=== PATIENT | female | born 1960 | race Caucasian/White ===

== ENCOUNTER 2016-10-18 05:10 | Day surgery (SDC) | payer OTHER ==
[2016-10-15 10:52] VITALS: BP 119/72
[2016-10-15 11:36] LABS: PATH.CAST-FLAG NOT PRESENT; SPERM-FLAG NOT PRESENT; SRC-FLAG NOT PRESENT; XTAL-FLAG NOT PRESENT; YLC-FLAG NOT PRESENT
[~2016-10-18] VITALS: Ht 139.7 cm; Wt 47.0 kg
[~2016-10-18 05:10] MED LIST: ACET-1600 PO; CRAN250T PO
[2016-10-18] MEDS ORDERED: LACTATED RINGERS 1,000 ML IV SCH (06:16)
[2016-10-18 06:19] VITALS: BP 119/72
[2016-10-18 07:01] LABS: HCG UR OBC PASS
[2016-10-18] MEDS ORDERED: FENTANYL PF 250 MCG/5ML ONE (07:14)
[2016-10-18] MEDS ORDERED: MIDAZOLAM 1 MG/ML, 2ML ONE (07:15)
[2016-10-18] MEDS ORDERED: PHENYLEPHRINE 10 MG/ML ONE (07:31)
[2016-10-18] MEDS ORDERED: CEFAZOLIN 1,000 MG ONE (07:31)
[2016-10-18] MEDS ORDERED: KETOROLAC 30 MG/1 ML ONE (07:31)
[2016-10-18] MEDS ORDERED: NEOSTIGMINE 1 MG/ML, 10ML ONE (07:31)
[2016-10-18] MEDS ORDERED: GLYCOPYRROLATE 0.2MG/1ML ONE (07:31)
[2016-10-18] MEDS ORDERED: PROPOFOL 10 MG/ML, 20ML ONE (07:31)
[2016-10-18] MEDS ORDERED: DEXAMETHASONE 4 MG/ML, 1ML ONE (07:31)
[2016-10-18] MEDS ORDERED: ROCURONIUM 10 MG/ML ONE (07:31)
[2016-10-18] MEDS ORDERED: ONDANSETRON 2MG/ML, 2ML ONE (07:31)
[2016-10-18] MEDS: BUPIVACAINE/PF-EPI 0.25% 1:200K ONE ×2 (07:52→08:28)
[2016-10-18] MEDS ORDERED: ACETAMINOPHEN 325 MG TABLET PO PRN (08:00)
[2016-10-18] MEDS ORDERED: PROMETHAZINE 25 MG/ML, 1ML IV PRN (08:00)
[2016-10-18] MEDS ORDERED: PROMETHAZINE 25 MG/ML, 1ML ONE (09:23)
[2016-10-18] MEDS ORDERED: FENTANYL PF 100 MCG/2ML ONE ×2 (09:23→09:43)
[2016-10-18] MEDS: FENTANYL PF 100 MCG/2ML IV PRN ×3 (09:30→09:45)
[2016-10-18] MEDS ORDERED: ACETAMINOPHEN 650 MG/20.3 ML UDC ONE (09:36)
[2016-10-18] MEDS ORDERED: OXYcodone 5 MG/5 ML ORAL.SOL UDC ONE (09:36)
[2016-10-18] MEDS: OXYcodone 5 MG/5 ML ORAL.SOL UDC PO PRN ×2 (09:40→09:44)
[2016-10-18] MEDS ORDERED: HYDROmorphone 1 MG/ML, 1ML IV PRN (10:30)
[2016-10-18] MEDS ORDERED: OXYcodone/APAP 5/325MG TABLET PO PRN (10:30)
[2016-10-18] MEDS ORDERED: ONDANSETRON 2MG/ML, 2ML IVPush PRN (10:30)
[2016-10-18] MEDS ORDERED: NEOMY/POLYMYXIN B GU IRR. 1 ML IRRIG ONE (11:50)
[2016-10-18] MEDS ORDERED: KETOROLAC 30 MG/1 ML IVPush PRN (15:00)
== END 2016-10-18 17:40 | disposition home or self-care (01) ==
LOC: OUT 05:10
PROVIDERS: ATTEND Obstetrics & Gynecology Female Pelvic Medicine and Reconstructive Surgery
DX: N81.3 Complete uterovaginal prolapse (principal); N39.3 Stress incontinence (female) (male); N83.312 Acquired atrophy of left ovary; N83.311 Acquired atrophy of right ovary; G43.909 Migraine, unspecified, not intractable, without status migrainosus
CPT/HCPCS: 57265; 57282; 57288; 58552; 81001; 81025; 87086; 87147; 88307; C1771; J0690; J1100; J1885; J2370; J2405; J2550; J2704; J2710; J3010; J3490; J7120; 87077; J2250

== ENCOUNTER → 2017-03-10 | Outpatient (CLI) | payer OTHER | END | disposition home or self-care (01) | LOC: CFH 12:23 | PROVIDERS: ATTEND Obstetrics & Gynecology Female Pelvic Medicine and Reconstructive Surgery | DX: N63 Unspecified lump in breast (principal); N64.4 Mastodynia | CPT/HCPCS: 76642; G0204 ==

== ENCOUNTER 2017-06-01 12:18 | Day surgery (SDC) | payer OTHER ==
[~2017-06-01] VITALS: Ht 139.7 cm; Wt 46.9 kg
[~2017-06-01 12:18] MED LIST changes: +BUPIVACAINE/PF 0.25% ONE; +IBUP200C8 PO; +NEOMY/POLYMYXIN B GU IRR. 1 ML IRRIG ONE
[2017-06-01 12:44] VITALS: BP 110/74
[2017-06-01] MEDS ORDERED: LACTATED RINGERS 1,000 ML IV SCH (12:47)
[2017-06-01] MEDS ORDERED: ONDANSETRON 2MG/ML, 2ML ONE (15:16)
[2017-06-01] MEDS ORDERED: KETOROLAC 30 MG/1 ML ONE (15:16)
[2017-06-01] MEDS ORDERED: PROPOFOL 10 MG/ML, 20ML ONE (15:16)
[2017-06-01] MEDS ORDERED: CEFAZOLIN 1,000 MG ONE (15:16)
[2017-06-01] MEDS ORDERED: DEXAMETHASONE 4 MG/ML, 1ML ONE (15:16)
[2017-06-01] MEDS ORDERED: hydrALAzine 20 MG/ML, 1ML IV PRN (16:00)
[2017-06-01] MEDS ORDERED: OXYcodone 5 MG/5 ML ORAL.SOL UDC PO PRN (16:00)
[2017-06-01] MEDS ORDERED: HYDROmorphone 1 MG/ML, 1ML IV PRN (16:00)
[2017-06-01] MEDS ORDERED: PROMETHAZINE 25 MG/ML, 1ML IV PRN (16:00)
[2017-06-01] MEDS ORDERED: ACETAMINOPHEN 325 MG TABLET PO PRN (16:00)
[2017-06-01] MEDS ORDERED: MEPERIDINE/PF 25MG/0.5ML IVPush PRN (16:00)
[2017-06-01] MEDS ORDERED: LABETALOL 5MG/ML, 20ML IV PRN (16:00)
[2017-06-01] MEDS ORDERED: ONDANSETRON 2MG/ML, 2ML IVPush PRN (16:00)
[2017-06-01] MEDS ORDERED: ACETAMINOPHEN 650 MG/20.3 ML UDC ONE (16:10)
[2017-06-01] MEDS ORDERED: OXYcodone 5 MG/5 ML ORAL.SOL UDC ONE (16:11)
[2017-06-01] MEDS ORDERED: FENTANYL PF 100 MCG/2ML ONE (16:14)
[2017-06-01] MEDS: FENTANYL PF 100 MCG/2ML IV PRN ×3 (16:16→16:44)
== END 2017-06-01 18:49 | disposition home or self-care (01) ==
LOC: OUT 12:18
PROVIDERS: ATTEND Obstetrics & Gynecology Female Pelvic Medicine and Reconstructive Surgery
DX: N81.10 Cystocele, unspecified (principal); N81.5 Vaginal enterocele; N39.3 Stress incontinence (female) (male); Z98.890 Other specified postprocedural states
CPT/HCPCS: 57265; 57282; 57288; C1771; J0690; J1100; J1885; J2250; J2405; J2704; J3010; J3490; J7120

== ENCOUNTER 2017-11-28 23:41 | Emergency (ER) | payer OTHER ==
[~2017-11-28] VITALS: Ht 139.7 cm; Wt 50.3 kg
[~2017-11-28 23:41] MED LIST changes: -BUPIVACAINE/PF 0.25% ONE; -NEOMY/POLYMYXIN B GU IRR. 1 ML IRRIG ONE
[2017-11-28 23:43] VITALS: BP 138/83
[2017-11-29 00:25] LABS: MICROSCOPIC AUTO
[2017-11-29 00:32] LABS: CULTURE INDICATED? YES
[2017-11-29] MEDS ORDERED: ONDANSETRON ODT 8 MG PO ONE (01:00)
[2017-11-29] MEDS ORDERED: HYDROcodone/APAP 5/325 TABLET PO ONE (01:00)
[2017-11-29] MEDS ORDERED: CEFTRIAXONE 1,000 MG IM ONE (01:00)
[2017-11-29] MEDS ORDERED: IBUPROFEN 200 MG TABLET PO ONE (01:00)
[2017-11-29] MEDS ORDERED: IBUPROFEN 200 MG TABLET ONE (01:10)
[2017-11-29] MEDS ORDERED: CEFTRIAXONE 1,000 MG ONE (01:10)
[2017-11-29] MEDS ORDERED: ONDANSETRON ODT 8 MG ONE (01:11)
[2017-11-29] MEDS ORDERED: HYDROcodone/APAP 5/325 TABLET ONE (01:11)
[2017-11-29] MEDS ORDERED: LIDOCAINE-MPF 1%, 2ML ONE (01:12)
== END 2017-11-29 01:33 | disposition home or self-care (01) ==
LOC: ED 23:59
DX: N39.0 Urinary tract infection, site not specified (principal); N10 Acute pyelonephritis
CPT/HCPCS: 81001; 87086; 96372; 99284; J0696; Q0162; 87077; 87186

== ENCOUNTER → 2018-05-08 | Outpatient (CLI) | payer OTHER | END | disposition home or self-care (01) | LOC: CFH 07:44 | PROVIDERS: ATTEND Family Medicine | DX: Z12.31 Encounter for screening mammogram for malignant neoplasm of breast (principal) | CPT/HCPCS: 77067 ==

== ENCOUNTER → 2018-06-20 | Outpatient (CLI) | payer OTHER | END | disposition home or self-care (01) | LOC: CFH 08:22 | PROVIDERS: ATTEND Orthopaedic Surgery | DX: S46.012A Strain of muscle(s) and tendon(s) of the rotator cuff of left shoulder, initial encounter (principal); M19.012 Primary osteoarthritis, left shoulder; R60.9 Edema, unspecified; G89.29 Other chronic pain; X58.XXXA Exposure to other specified factors, initial encounter; Y93.89 Activity, other specified; Y92.89 Other specified places as the place of occurrence of the external cause; Y99.8 Other external cause status ==

== ENCOUNTER 2018-08-29 05:50 | Day surgery (SDC) | payer OTHER ==
[~2018-08-29] VITALS: Ht 149.9 cm; Wt 49.0 kg
[~2018-08-29 05:50] MED LIST changes: +CELE200C PO; +NITR50CA PO
[2018-08-29] MEDS ORDERED: LACTATED RINGERS 1,000 ML IV SCH (06:07)
[2018-08-29 06:09] VITALS: BP 109/69
[2018-08-29] MEDS ORDERED: MIDAZOLAM 1 MG/ML, 2ML ONE (06:24)
[2018-08-29] MEDS ORDERED: FENTANYL PF 100 MCG/2ML ONE (06:24)
[2018-08-29] MEDS ORDERED: BUPIVACAINE/PF 0.25% ONE (06:36)
[2018-08-29] MEDS ORDERED: ACETAMINOPHEN 500 MG TABLET PO STA (06:36)
[2018-08-29] MEDS ORDERED: GABAPENTIN 300 MG CAPSULE PO STA (06:36)
[2018-08-29] MEDS ORDERED: EPINEPHRINE 1 MG/ML, 1ML ONE (06:37)
[2018-08-29] MEDS ORDERED: GABAPENTIN 300 MG CAPSULE ONE (06:37)
[2018-08-29] MEDS ORDERED: ACETAMINOPHEN 500 MG TABLET ONE (06:37)
[2018-08-29] MEDS ORDERED: GLYCOPYRROLATE 0.2MG/1ML, 5ML ONE (06:57)
[2018-08-29] MEDS ORDERED: KETOROLAC 30 MG/1 ML ONE (06:57)
[2018-08-29] MEDS ORDERED: DEXAMETHASONE 4 MG/ML, 1ML ONE (06:57)
[2018-08-29] MEDS ORDERED: PROPOFOL 10 MG/ML, 20ML ONE (06:57)
[2018-08-29] MEDS ORDERED: CEFAZOLIN 1,000 MG ONE (06:57)
[2018-08-29] MEDS ORDERED: ONDANSETRON 2MG/ML, 2ML ONE (06:57)
[2018-08-29] MEDS ORDERED: NEOSTIGMINE 1 MG/ML, 10ML ONE (06:57)
[2018-08-29] MEDS ORDERED: ROCURONIUM 10 MG/ML,10ML ONE (06:57)
[2018-08-29] MEDS ORDERED: METOCLOPRAMIDE 5 MG/ML, 2ML IV PRN (08:00)
[2018-08-29] MEDS ORDERED: MEPERIDINE/PF 25MG/0.5ML IVPush PRN (08:00)
[2018-08-29] MEDS ORDERED: FENTANYL PF 100 MCG/2ML IV PRN (08:00)
[2018-08-29] MEDS ORDERED: LORazepam 2 MG/ML, 1ML IVPush PRN (08:00)
[2018-08-29] MEDS ORDERED: HYDROmorphone 2 MG/ML, 1ML IVPush PRN (08:00)
[2018-08-29] MEDS ORDERED: OXYcodone 5 MG/5 ML ORAL.SOL UDC PO PRN (08:00)
[2018-08-29] MEDS ORDERED: OXYcodone 5 MG/5 ML ORAL.SOL UDC ONE (10:39)
== END 2018-08-29 16:15 | disposition home or self-care (01) ==
LOC: OUT 05:50
PROVIDERS: ATTEND Orthopaedic Surgery
DX: S46.012A Strain of muscle(s) and tendon(s) of the rotator cuff of left shoulder, initial encounter (principal); S46.112A Strain of muscle, fascia and tendon of long head of biceps, left arm, initial encounter; M75.22 Bicipital tendinitis, left shoulder; M19.012 Primary osteoarthritis, left shoulder; M75.42 Impingement syndrome of left shoulder; W18.39XA Other fall on same level, initial encounter; Y93.89 Activity, other specified; Y92.89 Other specified places as the place of occurrence of the external cause; Y99.8 Other external cause status
CPT/HCPCS: 23430; 29824; 29826; 29827; 64415; C1713; J0171; J0690; J1100; J1885; J2250; J2405; J2704; J2710; J3010; J3490; J7120

== ENCOUNTER 2018-09-21 11:32 | Outpatient (CLI) | payer OTHER ==
[2018-09-21 12:42] LABS: CALCIUM 9.4 mg/dL (8.5-10.1); CHLORIDE 107 mmol/L (98-107)
[2018-09-21 12:56] LABS: ALANINE AMINOTRANSFERASE 54 U/L (12-78); ALBUMIN 3.7 g/dL (3.4-5.0); ALKALINE PHOSPHATASE 113 U/L (45-117); ANION GAP 8 mmol/L (5-15); BILIRUBIN,TOTAL 0.3 mg/dL (0.2-1.0); T4 (THYROXINE) 9.5 mcg/dL (4.8-13.9); TOTAL PROTEIN 7.3 g/dL (6.4-8.2)
[2018-09-25 17:31] LABS: TOTAL VOLUME 24HRS,URINE 3000 mL
== END 2018-09-21 23:59 | disposition home or self-care (01) ==
LOC: CFH 11:32
PROVIDERS: ATTEND Family Medicine Sports Medicine
DX: M81.0 Age-related osteoporosis without current pathological fracture (principal); M75.122 Complete rotator cuff tear or rupture of left shoulder, not specified as traumatic
CPT/HCPCS: 36415; 80053; 81050; 82306; 82310; 82330; 82570; 82652; 83970; 84436; 84443; 84481

== ENCOUNTER → 2020-05-21 | Outpatient (CLI) | payer OTHER ==
[2020-05-21 10:56] LABS: BASOPHILS % (AUTO) 1 % (0-1); EOSINOPHILS % (AUTO) 3 % (1-7); LYMPHOCYTES % (AUTO) 29 % (22-44); MEAN CORPUSCULAR HEMOGLOBIN 28.5 pg (27.0-34.8); MEAN CORPUSCULAR HGB CONC 33.7 g/dL (32.4-35.8); MEAN PLATELET VOLUME 8.5 fL (7.4-10.4); MONOCYTES % (AUTO) 9 % (2-9); NEUTROPHILS % (AUTO) 57 % (42-75); PLATELET COUNT 262 x10^3/uL (130-400); RED CELL DISTRIBUTION WIDTH 14.1 % (9.6-15.2)
[2020-05-21 10:57] LABS: MD NO
[2020-05-21 11:01] LABS: ALANINE AMINOTRANSFERASE 32 U/L (12-78); ALBUMIN 4.1 g/dL (3.4-5.0); ANION GAP 2 mmol/L (5-15); CALCIUM 9.4 mg/dL (8.5-10.1); CHLORIDE 108 mmol/L (98-107)
[2020-05-21 11:03] LABS: ALKALINE PHOSPHATASE 100 U/L (45-117); BILIRUBIN,TOTAL 0.3 mg/dL (0.2-1.0); C-REACTIVE PROTEIN, QUANT 0.35 mg/dL (0.02-0.49); CHOL/HDL RATIO 3.7; CHOLESTEROL, TOTAL 249 mg/dL (140-239); CREATININE 0.88 mg/dL (0.55-1.02); HDL CHOL % 27 % (28-40); HDL CHOLESTEROL (DIRECT) 67 mg/dL (40-60); LDL CHOLESTEROL,CALCULATED 138 mg/dL (54-169); LDL/HDL RATIO 2.1 (0.5-3.0); TOTAL PROTEIN 8.3 g/dL (6.4-8.2); TRIGLYCERIDES 221 mg/dL (50-200); VLDL CHOLESTEROL 44 mg/dL (0-25)
[2020-05-21 11:34] LABS: HCT (SEDRATE) 39.8 % (34.6-47.8)
== END | disposition home or self-care (01) ==
LOC: LAB 10:31
PROVIDERS: ATTEND Family Medicine
DX: Z00.00 Encounter for general adult medical examination without abnormal findings (principal); M13.0 Polyarthritis, unspecified; K21.9 Gastro-esophageal reflux disease without esophagitis
CPT/HCPCS: 36415; 80053; 80061; 82306; 85025; 85651; 86038; 86140; 86430

== ENCOUNTER 2020-11-09 13:38 | Emergency (ER) | payer OTHER ==
[~2020-11-09] VITALS: Ht 149.9 cm; Wt 47.2 kg
[2020-11-09] MEDS ORDERED: ASPIRIN 81 MG TABLET CHEW PO ONE (14:00)
[2020-11-09 14:37] LABS: BASOPHILS % (AUTO) 0 % (0-1); EOSINOPHILS % (AUTO) 4 % (1-7); LYMPHOCYTES % (AUTO) 35 % (22-44); MEAN CORPUSCULAR HEMOGLOBIN 29.1 pg (27.0-34.8); MEAN CORPUSCULAR HGB CONC 34.1 g/dL (32.4-35.8); MEAN PLATELET VOLUME 8.2 fL (7.4-10.4); MONOCYTES % (AUTO) 8 % (2-9); NEUTROPHILS % (AUTO) 52 % (42-75); PLATELET COUNT 263 x10^3/uL (130-400); RED BLOOD COUNT 4.41 x10^6/uL (3.82-5.3); RED CELL DISTRIBUTION WIDTH 13.6 % (9.6-15.2)
[2020-11-09 14:39] LABS: MD NO
[2020-11-09 14:41] LABS: ALBUMIN 3.8 g/dL (3.4-5.0); ANION GAP 5 mmol/L (5-15); CHLORIDE 107 mmol/L (98-107)
[2020-11-09 14:48] LABS: CREATININE 0.71 mg/dL (0.55-1.02); TROPONIN I < 0.015 ng/mL (0.000-0.045)
[2020-11-09 15:14] VITALS: BP 114/57
[2020-11-09] MEDS ORDERED: ACET325C6 PO (15:14)
--- NOTE | 2020-11-09 15:46 | NUR ---
Precepting RN: Per Dr. Collins patient does not need aspirin d/t pain being musculoskeletal in nature and toponin is negative. This is a 60 yo female c/o left shoulder pain x approx 1 week, worse the last few days, especially with movement. Pt AO x 4. Skin pink, warm and dry. Resp even and unlabored. No acute distress noted. Pt provdied with dc instructions and rx. Pt verbalized understanding of DC instructions and rx instructions and need for f/u with PCP. Pt stead upon ambulation to DC desk.
== END 2020-11-09 15:50 | disposition home or self-care (01) ==
LOC: ED 15:43
DX: R07.89 Other chest pain (principal); M79.18 Myalgia, other site
CPT/HCPCS: 36415; 71045; 80048; 82040; 83880; 84484; 85025; 93005; 99285

== ENCOUNTER 2020-11-11 18:19 | Emergency (ER) | payer OTHER ==
[~2020-11-11] VITALS: Ht 149.9 cm; Wt 47.8 kg
[~2020-11-11 18:19] MED LIST changes: +ACET325C6 PO
[2020-11-11 18:34] VITALS: BP 136/82
== END 2020-11-11 20:33 | disposition home or self-care (01) ==
LOC: ED 20:17
DX: S61.452A Open bite of left hand, initial encounter (principal); L03.114 Cellulitis of left upper limb; W54.0XXA Bitten by dog, initial encounter; Y93.89 Activity, other specified; Y92.89 Other specified places as the place of occurrence of the external cause; Y99.8 Other external cause status
CPT/HCPCS: 99283